=== PATIENT | male | born 1975 | race Caucasian/White ===

== ENCOUNTER 2017-10-14 10:56 | Emergency (ER) | payer OTHER ==
[2017-10-14] MEDS: FAMOTIDINE 20 MG INJ IV (12:28)
[2017-10-14] MEDS: METHYLPREDNISOLONE 125 MG INJ IV (12:28)
[2017-10-14] MEDS: SOD CHLORIDE 0.9% 1,000 ML IV (12:28)
[2017-10-14] MEDS: DIPHENHYDRAMINE 50 MG INJ IV (12:28)
== END 2017-10-14 14:27 | disposition home or self-care (01) ==
LOC: FTE 10:56
DX: R21 Rash and other nonspecific skin eruption (principal); Z79.82 Long term (current) use of aspirin; Z87.891 Personal history of nicotine dependence
CPT/HCPCS: 96374; 96375; 99284-25